=== PATIENT | male | born 1950 | race Caucasian/White ===

== ENCOUNTER 2016-05-17 20:56 | Emergency (ER) | payer MEDICARE, OTHER ==
[~2016-05-17] VITALS: Ht 157.5 cm; Wt 69.1 kg
[~2016-05-17 20:56] MED LIST: AMLO2.5T78 PO; FLUO20CA38 PO; HYDR-3498 PO; HYDR-902 PO; LORA1TAB PO
[2016-05-17 21:09] VITALS: Ht 157.5 cm; Wt 69.1 kg
[2016-05-17] MEDS ORDERED: ONDANSETRON 4 MG INJ IV STA (22:07)
[2016-05-17] MEDS ORDERED: SOD CHLORIDE 0.9% 1,000 ML IV STA (22:07)
[2016-05-17 22:36] LABS: BASOPHIL # 0.1 10^3/ul (0.0-0.1); BASOPHILS % 1.7 % (0.0-2.0); EOSINOPHILS # 0.1 10^3/ul (0.0-0.5); EOSINOPHILS % 1.3 % (0.0-7.0); HEMATOCRIT 41.7 % (42.0-52.0); HEMOGLOBIN 13.7 g/dl (14.0-18.0); LYMPHOCYTES # 1.8 10^3/ul (0.8-2.9); LYMPHOCYTES % 30.2 % (15.0-51.0); MEAN CORPUSCULAR HEMOGLOBIN 31.2 pg (29.0-33.0); MEAN CORPUSCULAR VOLUME 94.6 fl (82.0-101.0); MEAN PLATELET VOLUME 7.6 fl (7.4-10.4); MONOCYTE # 0.4 10^3/ul (0.3-0.9); MONOCYTES % 6.7 % (0.0-11.0); NEUTROPHIL # 3.6 10^3/ul (1.6-7.5); NEUTROPHILS % 60.1 % (39.0-77.0); PLATELET COUNT 396 10^3/UL (140-440); UNCORRECTED WBC 5.9 10^3/ul (4.8-10.8); WHITE BLOOD COUNT 5.9 10^3/ul (4.8-10.8)
[2016-05-17 22:41] LABS: CONDITION 1
[2016-05-17 22:44] LABS: ALBUMIN 4.4 g/dl (3.3-4.9); POTASSIUM 4.9 mmol/L (3.5-5.1)
[2016-05-17 22:46] LABS: CREATININE 0.68 mg/dl (0.61-1.24)
[2016-05-17 22:47] LABS: ALBUMIN/GLOBULIN RATIO 1.22; BILIRUBIN,INDIRECT 0.1 mg/dl (0-1.1); BILIRUBIN,TOTAL 0.1 mg/dl (0.2-1.3); CALCIUM 9.4 mg/dl (8.4-10.2)
--- NOTE | 2016-05-17 23:34 | ERD ---
ER Documentation Chief Complaint Date/Time DATE: 05/17/16 TIME: 23:33 Chief Complaint alcohol intoxication bib family HPI This is a 65-year-old male brought in by family for alcohol intoxication. Patient has history of chronic alcoholism. No fevers no chills no nausea no vomiting no other current complaints. ROS All systems reviewed and are negative except as per history of present illness. Medications Home Meds Active Scripts Hydrocodone/Acetaminophen ([place] 10-325 Tablet) 1 Each Tablet, 1 TAB PO Q6H Y for PAIN, #15 TAB Prov:MARTIN PISANO PA-C 05/03/16 Lorazepam* (Lorazepam*) 1 Mg Tablet, 1 MG PO Q8, #10 TAB Prov:MARTIN PISANO PA-C 05/03/16 Reported Medications Fluoxetine Hcl* (Prozac*) 20 Mg Capsule, 20 MG PO QAM, CAP 02/27/14 Amlodipine Besylate* (Amlodipine Besylate*) 2.5 Mg Tablet, 2.5 MG PO DAILY, TAB 02/27/14 Discontinued Reported Medications Hydrocodone Bit-Acetaminophen* ([place]*) 5-325 Mg Tab, 1 TAB PO Q6 Y for SEVERE PAIN LEVEL 7-10, TAB 05/03/14 Allergies Allergies: Coded Allergies: Penicillins (Verified Allergy, Mild, RASH, 05/17/16) PMhx/Soc History of Surgery: No Anesthesia Reaction: No Hx Neurological Disorder: No Hx Respiratory Disorders: No Hx Cardiac Disorders: Yes (HTN) Hx Psychiatric Problems: No (alcoholism- ) Hx Miscellaneous Medical Probl: Yes (HTN,ARTHRITIS, ANXIETY) Hx Alcohol Use: Yes (HEAVY USE) Hx Substance Use: No Hx Tobacco Use: No Smoking Status: Never smoker Physical Exam Vitals Vital Signs Date Time Temp Pulse Resp B/P Pulse Ox O2 Delivery O2 Flow Rate FiO2 05/17/16 21:09 98.2 79 20 95/55 97 Physical Exam Const: [] Head: Atraumatic Eyes: Normal Conjunctiva ENT: Normal External Ears, Nose and Mouth. Neck: Full range of motion..~ No meningismus. Resp: Clear to auscultation bilaterally Cardio: Regular rate and rhythm, no murmurs Abd: Soft, non tender, non distended. Normal bowel sounds Skin: No petechiae or rashes Back: No midline or flank tenderness Ext: No cyanosis, or edema Neur: Awake and alert Psych: Normal Mood and Affect Result Diagram: 05/17/16221405/17/162214 Results 24 hrs Laboratory Tests Test 05/17/16 22:15 Alanine Aminotransferase (ALT/SGPT) 54IU/L Albumin 4.4g/dl Albumin/Globulin Ratio 1.22 Alkaline Phosphatase 71IU/L Anion Gap 23 Aspartate Amino Transf (AST/SGOT) 81IU/L Basophils # 0.110^3/ul Basophils % 1.7% Blood Urea Nitrogen 15mg/dl Calcium Level 9.4mg/dl Carbon Dioxide Level 25mmol/L Chloride Level 108mmol/L Creatinine 0.68mg/dl Direct Bilirubin 0.00mg/dl Eosinophils # 0.110^3/ul Eosinophils % 1.3% Globulin 3.60g/dl Glucose Level 66mg/dl Hematocrit 41.7% Hemoglobin 13.7g/dl Indirect Bilirubin 0.1mg/dl Lipase 63U/L Lymphocytes # 1.810^3/ul Lymphocytes % 30.2% Mean Corpuscular Hemoglobin 31.2pg Mean Corpuscular Hemoglobin Concent 33.0g/dl Mean Corpuscular Volume 94.6fl Mean Platelet Volume 7.6fl Monocytes # 0.410^3/ul Monocytes % 6.7% Neutrophils # 3.610^3/ul Neutrophils % 60.1% Nucleated Red Blood Cells # 0.010^3/ul Nucleated Red Blood Cells % 0.0/100WBC Platelet Count 10258^3/UL Potassium Level 4.9mmol/L Red Blood Count 4.4010^6/ul Red Cell Distribution Width 14.0% Sodium Level 151mmol/L Total Bilirubin 0.1mg/dl Total Protein 8.0g/dl White Blood Count 5.910^3/ul Current Medications Medications (Trade) Dose Ordered Sig/Royal Route PRN Reason Start Time Stop Time Status Last Admin Dose Admin Sodium Chloride (NS) 1,000 ml @ 1,000 mls/hr Q1H STAT IV 05/17/16 22:07 05/17/16 23:06 DC 05/17/16 22:36 Ondansetron HCl (Zofran Inj) 4 mg ONCE STAT IV 05/17/16 22:07 05/17/16 22:08 DC 05/17/16 22:40 Procedures/MDM Medical decision-making: This is a 5-year-old male who has been here for alcohol intoxication. Is been allowed to sober up. Is been hydrated. Advised him to stop drinking. Referrals were given to the family for alcohol detox centers in the area. Departure Diagnosis: Primary Impression: Alcohol intoxication Complication of substance-induced condition: uncomplicated Qualified Code: F10.120 - Alcohol intoxication, uncomplicated Condition: Stable VERONIKA HAYS May 17, 2016 23:34
[2016-05-17 23:59] VITALS: BP 100/69; PULSE 80; RESP 14; TEMP 98
== END 2016-05-18 00:03 | disposition home or self-care (01) ==
LOC: E/R 20:56
DX: F10.120 Alcohol abuse with intoxication, uncomplicated (principal); I10 Essential (primary) hypertension
CPT/HCPCS: 36415; 80053; 83690; 85025; 96374; 99284; J2405; J7030

== ENCOUNTER 2016-06-01 09:30 | Emergency (ER) | payer MEDICARE, OTHER ==
[~2016-06-01] VITALS: Ht 152.4 cm; Wt 53.0 kg
[~2016-06-01 09:30] MED LIST changes: -HYDR-3498 PO
[2016-06-01 09:35] VITALS: Ht 152.4 cm; Wt 53.0 kg
[2016-06-01] MEDS ORDERED: SILVER SULFADIAZINE 1% 25 GM CR TOP ONE (11:30)
[2016-06-01] MEDS ORDERED: SSD1C20 TOP (11:53)
[2016-06-01] MEDS ORDERED: ULT50 PO (11:54)
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
== END 2016-06-01 12:22 | disposition home or self-care (01) ==
LOC: FTE 09:30
DX: M79.605 Pain in left leg (principal); M79.604 Pain in right leg; I10 Essential (primary) hypertension
CPT/HCPCS: 99283

== ENCOUNTER 2016-08-20 20:58 | Emergency (ER) | payer MEDICARE, OTHER ==
[~2016-08-20] VITALS: Ht 157.5 cm; Wt 57.0 kg
[~2016-08-20 20:58] MED LIST changes: +SSD1C20 TOP; +TRAM50TA2 PO
[2016-08-20 21:04] VITALS: Ht 157.5 cm; Wt 57.0 kg
--- NOTE | 2016-08-20 21:56 | ERA ---
ER Documentation Chief Complaint Date/Time DATE: 08/20/16 TIME: 21:56 Chief Complaint SOB, HTN and dizziness. pt sees a neurologist per daughter HPI The patient is a 66-year-old male, presenting to the ED because of acute dyspnea , acute headache, acute dizziness, nausea but no vomiting that began about 7 PM. He had similar symptoms previously. He denies fever, chills, neck pain, chest pain, dysuria, diarrhea, constipation. He used to smoke but quit about 5 months ago denies smoking Past medical history: Hypertension, anxiety, muscle stiffness that is follow-up with a neurologist who put him on Neurontin, muscle relaxant, [place] Past surgical history: None ROS All systems reviewed and are negative except as per history of present illness. Medications Home Meds Active Scripts Ibuprofen* (Motrin*) 600 Mg Tab, 600 MG PO Q6H Y for PAIN AND OR ELEVATED TEMP, #20 TAB Prov:RANDALL ROSE MD 08/21/16 Tramadol HCl (Tramadol HCl) 50 Mg Tablet, 50 MG PO Q4 Y for PAIN, #20 TAB Prov:MARTIN PISANO PA-C 06/01/16 Silver Sulfadiazine (THERMAZENE 1% 25 GM) 1 Applic Cr, 1 APPLIC TOP BID, #1 TUB Prov:MARTIN PISANO PA-C 06/01/16 Hydrocodone/Acetaminophen ([place] 10-325 Tablet) 1 Each Tablet, 1 TAB PO Q6H Y for PAIN, #15 TAB Prov:MARTIN PISANO PA-C 05/03/16 Lorazepam* (Lorazepam*) 1 Mg Tablet, 1 MG PO Q8, #10 TAB Prov:MARTIN PISANO PA-C 05/03/16 Reported Medications Fluoxetine Hcl* (Prozac*) 20 Mg Capsule, 20 MG PO QAM, CAP 02/27/14 Amlodipine Besylate* (Amlodipine Besylate*) 2.5 Mg Tablet, 2.5 MG PO DAILY, TAB 02/27/14 Allergies Allergies: Coded Allergies: Penicillins (Verified Allergy, Mild, RASH, 05/17/16) PMhx/Soc History of Surgery: No Anesthesia Reaction: No Hx Neurological Disorder: No Hx Respiratory Disorders: No Hx Cardiac Disorders: Yes (HTN) Hx Psychiatric Problems: No Hx Miscellaneous Medical Probl: Yes (osteoporosis) Hx Alcohol Use: Yes (Hx: ETOH abuse) Hx Substance Use: No Hx Tobacco Use: No Smoking Status: Never smoker Physical Exam Vitals Vital Signs Date Time Temp Pulse Resp B/P Pulse Ox O2 Delivery O2 Flow Rate FiO2 08/21/16 02:28 98.2 49 18 100 Room Air 08/21/16 01:00 98.3 50 16 159/78 98 Room Air 08/20/16 23:49 57 16 167/90 98 Room Air 08/20/16 21:51 61 20 155/95 98 Room Air 08/20/16 21:04 95.0 61 20 161/88 97 Physical Exam Const: No acute distress. Head: Atraumatic. Eyes: Normal Conjunctiva. ENT: Normal External Ears, Nose and Mouth. Neck: Full range of motion. No meningismus. Resp: Clear to auscultation bilaterally. Cardio: Regular rate and rhythm, no murmurs. Abd: Soft, non distended, normal bowel sounds, non tender. Skin: No petechiae or rashes. Back: No midline or flank tenderness. Ext: No cyanosis, or edema. Neur: Awake and alert. No focal deficit Psych: Normal Mood and Affect. Result Diagram: 08/20/16 2215 08/20/16 2215 Results 24 hrs Laboratory Tests Test 08/20/16 22:15 08/20/16 22:54 White Blood Count 5.310^3/ul Red Blood Count 4.5610^6/ul Hemoglobin 13.8g/dl Hematocrit 40.3% Mean Corpuscular Volume 88.4fl Mean Corpuscular Hemoglobin 30.3pg Mean Corpuscular Hemoglobin Concent 34.2g/dl Red Cell Distribution Width 13.1% Platelet Count 77699^3/UL Mean Platelet Volume 10.5fl Neutrophils % 55.7% Lymphocytes % 28.3% Monocytes % 10.6% Eosinophils % 4.4% Basophils % 0.8% Nucleated Red Blood Cells % 0.0/100WBC Neutrophils # 2.910^3/ul Lymphocytes # 1.510^3/ul Monocytes # 0.610^3/ul Eosinophils # 0.210^3/ul Basophils # 0.010^3/ul Nucleated Red Blood Cells # 0.010^3/ul Prothrombin Time 13.0Sec Prothrombin Time Ratio 1.0 INR International Normalized Ratio 0.98 Activated Partial Thromboplast Time 30.6Sec Sodium Level 138mmol/L Potassium Level 3.7mmol/L Chloride Level 100mmol/L Carbon Dioxide Level 27mmol/L Anion Gap 15 Blood Urea Nitrogen 11mg/dl Creatinine 0.58mg/dl Glucose Level 110mg/dl Calcium Level 9.5mg/dl Total Bilirubin 0.7mg/dl Direct Bilirubin 0.00mg/dl Indirect Bilirubin 0.7mg/dl Aspartate Amino Transf (AST/SGOT) 28IU/L Alanine Aminotransferase (ALT/SGPT) 26IU/L Alkaline Phosphatase 70IU/L Total Protein 7.7g/dl Albumin 4.4g/dl Globulin 3.30g/dl Albumin/Globulin Ratio 1.33 Lipase 71U/L Ethyl Alcohol Level < 10.0mg/dl Bedside Urine pH (LAB) 7.0 Bedside Urine Protein (LAB) Negative Bedside Urine Glucose (UA) Negative Bedside Urine Ketones (LAB) Negative Bedside Urine Blood Negative Bedside Urine Nitrite (LAB) Negative Bedside Urine Leukocyte Esterase (L Negative Current Medications Medications (Trade) Dose Ordered Sig/Royal Route PRN Reason Start Time Stop Time Status Last Admin Dose Admin IV Flush 10 ml 10 ml STK-MED ONCE .ROUTE 08/21/16 01:29 08/21/16 01:30 DC 08/21/16 01:51 Sodium Chloride (NS) 100 ml @ ud STK-MED ONCE .ROUTE 08/21/16 01:29 08/21/16 01:30 DC 08/21/16 01:51 Iohexol (Omnipaque 300mg/ ml) 150 ml STK-MED ONCE .ROUTE 08/21/16 01:29 08/21/16 01:30 DC 08/21/16 01:51 Ondansetron HCl (Zofran Odt) 4 mg ONCE STAT ODT 08/21/16 03:25 08/21/16 03:27 DC Acetaminophen/ Hydrocodone Bitart ([place] (10325)) 1 tab ONCE ONCE PO 08/21/16 03:30 08/21/16 03:31 Procedures/[place] [id number] Radiology Main Line: [phone] DIAGNOSTIC IMAGING REPORT Patient: BA LOVETT : 1950 Age: 66 Sex: M MR #: [id number] DOS: 08/20/16 0000 Ordering MD: RANDALL ROSE MD Location: E/R Room/Bed: PROCEDURE: XR Chest. CLINICAL INDICATION: Dyspnea and chest pain TECHNIQUE: AP Portable chest. COMPARISON: 05/03/2014 chest x-ray FINDINGS: The soft tissues and bones are remarkable for multiple EKG leads superimposed over the chest wall. Chronic left hemidiaphragmatic elevation is present with low lung volumes. Mild cardiomegaly is present with an apparent widening of the mediastinum. No focal infiltrates, nodules, masses, or effusions are present. No pneumothorax is present. IMPRESSION: 1. No radiographic evidence for acute cardiopulmonary disease 2. Mild cardiomegaly 3. Widened mediastinum and consider CT chest to further evaluate. 4. Chronic left hemidiaphragmatic elevation RPTAT: HDC .Priyanka Dominique MD, MD Date Time Electronically viewed and signed by .Priyanka Dominique MD, MD on 08/21/2016 00: 20 .C/ CC: RANDALL ROSE MD [place] [id number] Radiology Main Line: [phone] DIAGNOSTIC IMAGING REPORT Patient: BA LOVETT : 1950 Age: 66 Sex: M MR #: [id number] DOS: 08/20/16 2204 Ordering MD: RANDALL ROSE MD Location: E/R Room/Bed: PROCEDURE: Noncontrast CT Head. CLINICAL INDICATION: Headache TECHNIQUE: Noncontrast CT of the head was obtained. The administered radiation dose was CTDI vol = 45 mGy, DLP = 720 mGy-cm. COMPARISON: No pertinent prior examinations were submitted for comparison. FINDINGS: The ventricles and cortical sulci are mildly enlarged. There is mild decreased attenuation within the periventricular and subcortical white matter compatible with chronic microvascular changes. There is no acute intracranial hemorrhage or extra-axial fluid collection. There is no mass effect. No midline shift is identified. There is no loss of curiel-white differentiation to suggest acute infarction. The orbits are within normal limits. The paranasal sinuses are well aerated. No destructive osseous lesion is identified. IMPRESSION: No acute findings. Mild diffuse parenchymal volume loss and chronic microvascular changes. RPTAT: HIKT .Miguel Angel Duran MD, MD Date Time Electronically viewed and signed by .Miguel Angel Duran MD, MD on 08/21/2016 00:22 .T/ CC: RANDALL ROSE MD [place] [address] Radiology Main Line: [phone] DIAGNOSTIC IMAGING REPORT Patient: BA LOVETT : 1950 Age: 66 Sex: M MR #: [id number] DOS: 08/21/16 0101 Ordering MD: RANDALL ROSE MD Location: E/R Room/Bed: PROCEDURE: CT angiogram chest. CLINICAL INDICATION: Shortness of breath. TECHNIQUE: CT angiogram of the chest was performed utilizing axial images with reconstructions in sagittal and coronal planes following the intravenous administration of 100 cc Omnipaque 300 contrast. The administered radiation dose is CTDI 7.2 mGy, DLP 279 mGy-cm. COMPARISON: No pertinent prior examinations are submitted for comparison. FINDINGS: Pulmonary angiogram: The pulmonary arteries are adequately opacified to the level of the segmental pulmonary artery branches. There is minimal respiratory motion artifact. There is no evidence of pulmonary embolus. Aortogram: There is no evidence of aortic dissection or aneurysm. Major branches of the aorta are patent. Chest: There is mild atelectasis within the left lung base. There is elevation of the left hemidiaphragm. No pleural effusions are seen. The tracheobronchial tree is unremarkable. There is mild cardiomegaly. No pericardial effusion is seen. There is no evidence of mediastinal or hilar adenopathy. Visualized Upper abdomen: Unremarkable. Osseous structures: Unremarkable. IMPRESSION: No evidence of pulmonary embolus. Mild atelectasis at the left lung base. RPTAT: HIKT .Miguel Angel Duran MD, Date Time Electronically viewed and signed by .Miguel Angel Duran MD, MD on 08/21/2016 02:57 .T/ CC: RANDALL ROSE MD MEDICAL MAKING DECISION: The patient is a 66-year-old male, presenting to the ER because of acute headache of unclear etiology, acute dyspnea of unclear etiology. These symptoms happened after he took tramadol with benazepril, it might be adverse drug reaction. He was treated with [place] 10 mg p.o. for headache, Zofran ODT for nausea with good response. The differential diagnoses for acute headache considered include but are not limited to subarachnoid hemorrhage, occult trauma, CVA, meningitis, encephalitis, hypertension, tension , migraine, cluster, narcotic withdrawal, cervical spine disease. The differential diagnoses for acute dyspnea considered include but are not limited to asthma, COPD, pneumonia, pulmonary embolus, pleural effusion, congestive heart failure. Departure Diagnosis: Primary Impression: Headache Additional Impressions: Dyspnea Anemia Condition: Good Comments He was discharged with Motrin I discussed the findings with the patient. I advised the patient to follow-up with the primary physician in about 1-2 days, sooner if needed and return if any concern. RANDALL ROSE MD Aug 20, 2016 21:56
[2016-08-20 22:54] LABS: ADD SCAN DIFF NO
[2016-08-20 22:55] LABS: BASOPHILS % 0.8 % (0.0-2.0); EOSINOPHILS # 0.2 10^3/ul (0.0-0.5); EOSINOPHILS % 4.4 % (0.0-7.0); HEMATOCRIT 40.3 % (42.0-52.0); HEMOGLOBIN 13.8 g/dl (14.0-18.0); LYMPHOCYTES # 1.5 10^3/ul (0.8-2.9); LYMPHOCYTES % 28.3 % (15.0-51.0); MEAN CORPUSCULAR HEMOGLOBIN 30.3 pg (29.0-33.0); MEAN CORPUSCULAR HGB CONC 34.2 g/dl (32.0-37.0); MEAN CORPUSCULAR VOLUME 88.4 fl (82.0-101.0); MEAN PLATELET VOLUME 10.5 fl (7.4-10.4); MONOCYTE # 0.6 10^3/ul (0.3-0.9); MONOCYTES % 10.6 % (0.0-11.0); NEUTROPHIL # 2.9 10^3/ul (1.6-7.5); NEUTROPHILS % 55.7 % (39.0-77.0); PLATELET COUNT 182 10^3/UL (140-415); RED BLOOD COUNT 4.56 10^6/ul (4.70-6.10); RED CELL DISTRIBUTION WIDTH 13.1 % (11.5-14.5); WHITE BLOOD COUNT 5.3 10^3/ul (4.8-10.8)
[2016-08-20 22:55] LABS: URINE BLOOD (Dip) POC Negative (NEGATIVE)
[2016-08-20 23:10] LABS: ALBUMIN 4.4 g/dl (3.3-4.9); CHLORIDE 100 mmol/L (97-110)
[2016-08-20 23:11] LABS: POTASSIUM 3.7 mmol/L (3.5-5.1); SODIUM 138 mmol/L (135-144)
[2016-08-20 23:12] LABS: INR 0.98; PARTIAL THROMBOPLASTIN TIME 30.6 Sec (25.0-35.0)
[2016-08-20 23:13] LABS: ALANINE AMINOTRANSFERASE 26 IU/L (13-69); ALBUMIN/GLOBULIN RATIO 1.33; ALKALINE PHOSPHATASE 70 IU/L (42-121); ANION GAP 15 (8-16); ASPARTATE AMINO TRANSFERASE 28 IU/L (15-46); BILIRUBIN,INDIRECT 0.7 mg/dl (0-1.1); BILIRUBIN,TOTAL 0.7 mg/dl (0.2-1.3); BLOOD UREA NITROGEN 11 mg/dl (7-20); CALCIUM 9.5 mg/dl (8.4-10.2); CARBON DIOXIDE 27 mmol/L (21-31); CREATININE 0.58 mg/dl (0.61-1.24); GLUCOSE 110 mg/dl (70-220); TOTAL PROTEIN 7.7 g/dl (6.1-8.1)
[2016-08-20 23:19] LABS: ETHANOL < 10.0 mg/dl
--- NOTE | 2016-08-21 00:21 | RADRPT ---
PROCEDURE: XR Chest. CLINICAL INDICATION: Dyspnea and chest pain TECHNIQUE: AP Portable chest. COMPARISON: 05/03/2014 chest x-ray FINDINGS: The soft tissues and bones are remarkable for multiple EKG leads superimposed over the chest wall. Chronic left hemidiaphragmatic elevation is present with low lung volumes. Mild cardiomegaly is pre sent with an apparent widening of the mediastinum. No focal infiltrates, nodules, masses, or effusi ons are present. No pneumothorax is present. IMPRESSION: 1. No radiographic evidence for acute cardiopulmonary disease 2. Mild cardiomegaly 3. Widened mediastinum and consider CT chest to further evaluate. 4. Chronic left hemidiaphragmatic elevation RPTAT: HDC .Priyanka Dominique MD, Date Time Electronically viewed and signed by .Priyanka Dominique MD, on 08/21/2016 00:20 .C/
--- NOTE | 2016-08-21 00:22 | RADRPT ---
PROCEDURE: Noncontrast CT Head. CLINICAL INDICATION: Headache TECHNIQUE: Noncontrast CT of the head was obtained. The administered radiation dose was CTDI vol = 45 mGy, DLP = 720 mGy-cm. COMPARISON: No pertinent prior examinations were submitted for comparison. FINDINGS: The ventricles and cortical sulci are mildly enlarged. There is mild decreased attenuation within t he periventricular and subcortical white matter compatible with chronic microvascular changes. There is no acute intracranial hemorrhage or extra-axial fluid collection. There is no mass effect . No midline shift is identified. There is no loss of curiel-white differentiation to suggest acute in farction. The orbits are within normal limits. The paranasal sinuses are well aerated. No destructive osseous lesion is identified. IMPRESSION: No acute findings. Mild diffuse parenchymal volume loss and chronic microvascular changes. RPTAT: HIKT .Miguel Angel Duran MD, Date Time Electronically viewed and signed by .Miguel Angel Duran MD, on 08/21/2016 00:22 .T/
[2016-08-21] MEDS ORDERED: IOHEXOL 300MG/ML 150 ML BTL ONE (01:29)
[2016-08-21] MEDS ORDERED: SOD CHLORIDE 0.9% 100 ML ONE (01:29)
[2016-08-21 02:28] VITALS: TEMP 98.2
--- NOTE | 2016-08-21 02:57 | RADRPT ---
PROCEDURE: CT angiogram chest. CLINICAL INDICATION: Shortness of breath. TECHNIQUE: CT angiogram of the chest was performed utilizing axial images with reconstructions in sagittal and coronal planes following the intravenous administration of 100 cc Omnipaque 300 contras t. The administered radiation dose is CTDI 7.2 mGy, DLP 279 mGy-cm. COMPARISON: No pertinent prior examinations are submitted for comparison. FINDINGS: Pulmonary angiogram: The pulmonary arteries are adequately opacified to the level of the segmental pulmonary artery branches. There is minimal respiratory motion artifact. There is no evidence of p ulmonary embolus. Aortogram: There is no evidence of aortic dissection or aneurysm. Major branches of the aorta are patent. Chest: There is mild atelectasis within the left lung base. There is elevation of the left hemidiaphragm. No pleural effusions are seen. The tracheobronchial tree is unremarkable. There is mild cardiomegaly. No pericardial effusion is seen. There is no evidence of mediastinal o r hilar adenopathy. Visualized Upper abdomen: Unremarkable. Osseous structures: Unremarkable. IMPRESSION: No evidence of pulmonary embolus. Mild atelectasis at the left lung base. RPTAT: HIKT .Miguel Angel Duran MD, MD Date Time Electronically viewed and signed by .Miguel Angel Duran MD, on 08/21/2016 02:57 .T/
[2016-08-21 03:00] VITALS: BP 128/106; PULSE 46; RESP 14
[2016-08-21] MEDS ORDERED: ONDANSETRON (ODT) 4 MG TAB ODT STA (03:25)
[2016-08-21] MEDS ORDERED: IBUP-1542 PO (03:27)
[2016-08-21] MEDS ORDERED: HYDROCODONE/APAP (10/325) TAB PO ONE (03:30)
== END 2016-08-21 04:26 | disposition home or self-care (01) ==
LOC: E/R 20:58
DX: R51 Headache (principal); R40.2252 Coma scale, best verbal response, oriented, at arrival to emergency department; R06.00 Dyspnea, unspecified; D64.9 Anemia, unspecified; I10 Essential (primary) hypertension; R40.2142 Coma scale, eyes open, spontaneous, at arrival to emergency department; R40.2362 Coma scale, best motor response, obeys commands, at arrival to emergency department; R11.0 Nausea; R07.9 Chest pain, unspecified
CPT/HCPCS: 36415; 70450; 71010; 71260; 80053; 80306; 81003; 83690; 85025; 85610; 85730; 99285; Q9967